=== PATIENT | female | born 1940 | race Native Hawaiian/Other Pacific Islander ===

== ENCOUNTER 2016-12-31 06:47 | Day surgery (SDC) | payer MEDICARE ==
[~2016-12-31 06:47] MED LIST: ACETAMINOPHEN 1,000 MG/100 ML BTL IV ONE; CEFAZOLIN 2 Gram 2 GM/50 ML BAG IVPB ONE; FAMOTIDINE 20MG TABLET PO ONE; MECLIZINE 25 MG TABLET PO ONE; METOCLOPRAMIDE 10 MG TABLET PO ONE
--- NOTE | 2016-12-31 06:48 | History and Physical - [facility] ---
CHIEF COMPLAINT/HISTORY OF CHIEF COMPLAINT: This patient with a history of a post laminectomy radiculitis has a spinal opioid infusion system in place which currently is nonfunctional. Due to the number of different kinds of issues this system was slowly titrated down in the opioid until at this time it is a keep open rate. By her request she is here for removal. There appear to have been a number of different side effects throughout the infusion therapy. PAST MEDICAL HISTORY: Chronic obstructive pulmonary disease, coronary artery disease, peripheral vascular disease, cardiac arrhythmia, gastritis, and degenerative arthritis. PAST SURGICAL HISTORY: surgery, foot surgery, shoulder surgery, spinal surgery and pump implant. MEDICATIONS ON ADMISSION: List to be provided. ALLERGIES: TAPE AND ANTIINFLAMMATORIES. FAMILY/PSYCHOSOCIAL HISTORY: Social history - Caffeine. Family history - Hypothyroidism, asthma, coronary artery disease and cancer. SYSTEMS REVIEW: The patient is appropriate in no acute distress. The remainder of the systems review is positive for blood pressure problems, peripheral edema, chronic bronchitis, and gastritis. PHYSICAL EXAMINATION: Height is 5'0", weight is 170. No vital signs. HEENT: Within normal limits. LUNGS: Clear. HEART: Regular rate and rhythm. ABDOMEN: Nontender. MUSCULOSKELETAL: Examination of the musculoskeletal system shows the incisions for the pump, battery in the posterior gluteal margin, and the midline incision for the catheter placement. Chronic pain pattern appears to be low back with a bilateral leg extension. IMPRESSION: 1. POST LUMBAR LAMINECTOMY SYNDROME, ICD10 CODE M96.1. 2. LUMBAR RADICULITIS, ICD10 CODE M54.16 AND M54.17. 3. SPINAL OPIOID INFUSION SYSTEM NONFUNCTIONAL. PLAN: The patient is here for removal of a pump and spinal catheter on an outpatient basis. The potential risks, side effects, and complications all have been carefully reviewed and discussed. TOMMY NEVAREZ D.O. Date & Time JOB NUMBER: [id number] MTDD
[2016-12-31] MEDS ORDERED: CEFAZOLIN 1G VIAL IM ONE (14:06)
[2016-12-31] MEDS ORDERED: LIDOCAINE 1% W/EPI 1:200,000 MPF 30ML SQ ONE (14:06)
[2016-12-31] MEDS ORDERED: BUPIVACAINE 0.5% W/EPI MPF 30 ML VIAL IVP ONE (14:06)
[2016-12-31] MEDS ORDERED: HYDROCODONE/APAP 7.5/325MG TABLET PO ONE (14:07)
[2016-12-31] MEDS ORDERED: FENTANYL PF 100MCG/2ML VIAL IV ONE (15:11)
[2016-12-31] MEDS ORDERED: MIDAZOLAM HCL 2MG/2ML VIAL IV ONE (15:11)
[2016-12-31] MEDS ORDERED: LIDOCAINE 2% MDV (20MG/ML) 20ML VIAL IV ONE (15:11)
[2016-12-31] MEDS ORDERED: HYDROMORPHONE HCL 2 MG/ML VIAL IV ONE (15:11)
[2016-12-31] MEDS ORDERED: PROPOFOL 10 MG/ML VIAL IV ONE (15:11)
--- NOTE | 2017-01-05 16:06 | Operative Note - [facility] ---
DATE OF SURGERY: 12/31/16 PREOPERATIVE DIAGNOSES: 1. POST LUMBAR LAMINECTOMY SYNDROME, ICD-10 CODE = M96.1. 2. LUMBAR RADICULITIS, ICD-10 CODE = M54.16 and M54.17. 3. SPINAL OPIOID INFUSION SYSTEM NONFUNCTIONAL. OPERATION: 1. INCISION, SUBCUTANEOUS DISSECTION, AND REMOVAL OF INDWELLING SPINAL CATHETER. 2. INCISION, SUBCUTANEOUS DISSECTION, AND REMOVAL OF INDWELLING PROGRAMMABLE PUMP. SURGEON: TOMMY NEVAREZ D.O. ANESTHESIA: LOCAL SEDATION. ANESTHESIA PROVIDER: SHENA DRIVER CRNA. INDICATION: This patient presents with a history of intractable lumbar radiculitis managed with the spinal infusion device. Over years, this patient started to develop side-effects somewhat atypical but required reduction of the infusion. Eventually, the infusion was turned off. She is here for removal of a nonfunctional device. PROCEDURE: Intravenous line, vital sign monitoring, IV sedation by Anesthesia. Patient position prone. Sterile prep, sterile technique. The posterior gluteal pump pouch left posterior incision infiltrated. Midline incision approximating L3 was infiltrated and incision made. Subcutaneous dissection was conducted to the implanted catheter and the anchor. The anchor and the suture were removed intact. A pursestring suture was placed around the catheter. As the catheter was retracted out of the space, the pursestring suture was tightened stopping CSF leak. The pump pouch incision was then made and subcutaneous dissection was conducted to the pump. No Dacron sleeve noted. The pump and its retaining suture were removed intact. Antibiotic irrigation and Bovie for hemostasis of both sites. Vicryl for fascia, running subcuticular Vicryl for skin, and a Dermabond closure system was then used to approximate the edges of the wound after the closure. She was transported to the Recovery Room stable showing no side-effects from the procedure or the sedation. When fully awake and alert, she was prepared for discharge. DISCHARGE INSTRUCTIONS: 1. The sites will remain clean and dry. No showering or bathing in any way that would disrupt dressings, if it happens, contact the clinic. 2. The office will contact the patient to evaluate the incisions in 5-7 days. Until then, her activities should stay low. 3. She can resume her standard medications, including the antibiotic Levaquin 500 mg once a day for 14 days. All other instructions provided, numbers to contact, problems given. She was then discharged. cc: Primary Physician JOB NUMBER: [id number] MTDD
== END 2016-12-31 10:20 | disposition home or self-care (01) ==
LOC: SUR 06:47
PROVIDERS: ATTEND Pain Medicine Interventional Pain Medicine
DX: T85.890A Other specified complication of nervous system prosthetic devices, implants and grafts, initial encounter (principal); J44.9 Chronic obstructive pulmonary disease, unspecified; I73.9 Peripheral vascular disease, unspecified
CPT/HCPCS: 62365; 62355; 00300; J3010; J1170; J0690

== ENCOUNTER 2017-08-26 06:43 | Day surgery (SDC) | payer MEDICARE ==
[~2017-08-26 06:43] MED LIST changes: -MECLIZINE 25 MG TABLET PO ONE; -METOCLOPRAMIDE 10 MG TABLET PO ONE
[2017-08-26] MEDS ORDERED: LIDOCAINE 2% MDV (20MG/ML) 20ML VIAL IV ONE (06:44)
[2017-08-26] MEDS ORDERED: FENTANYL PF 100MCG/2ML VIAL IV ONE ×2 (06:44)
[2017-08-26] MEDS ORDERED: MIDAZOLAM HCL 2MG/2ML VIAL IV ONE (06:44)
[2017-08-26] MEDS ORDERED: LIDOCAINE 1% W/EPI 1:200,000 MPF 30ML SQ ONE (06:44)
[2017-08-26] MEDS ORDERED: BUPIVACAINE 0.75% W/EPI MPF 30ML VIAL IVP ONE (06:44)
[2017-08-26] MEDS ORDERED: PROPOFOL 10 MG/ML VIAL IV ONE (06:44)
[2017-08-26] MEDS ORDERED: CEFAZOLIN 1G VIAL IM ONE (06:44)
--- NOTE | 2017-08-26 06:48 | History and Physical - [facility] ---
CHIEF COMPLAINT/HISTORY OF CHIEF COMPLAINT: This patient presents with a post laminectomy radiculitis. The history is chronic, the pain is intractable and has not responded to conservative therapies. A spinal opioid infusion device had to be removed because of side effects. A spine cord stimulator trial on 11/18 resulted in 75-80% pain control. Due to the failure of all other therapies, she is here for implantation of a permanent system. PAST MEDICAL HISTORY: Coronary artery disease, chronic obstructive pulmonary disease, peripheral vascular disease, cardiac arrhythmia, gastritis, and degenerative arthritis. PAST SURGICAL HISTORY: section, foot surgery, shoulder surgery, spinal surgery, pump implant and removal. MEDICATIONS ON ADMISSION: List to be provided. ALLERGIES: ADHESIVES AND ANTIINFLAMMATORIES. FAMILY/PSYCHOSOCIAL HISTORY: Positive for caffeine, hypothyroidism, coronary artery disease and cancer. SYSTEMS REVIEW: The patient is appropriate in no acute distress. The remainder of the systems review is positive for peripheral edema, bronchitis and gastritis. PHYSICAL EXAMINATION: Height is 5'0", weight is 160. No vital sounds. HEENT: Within normal limits. LUNGS: Clear. HEART: Regular rate and rhythm. ABDOMEN: Nontender. MUSCULOSKELETAL: Examination of the musculoskeletal system shows diffuse tenderness throughout the lumbar spine. Range of motion produces pain throughout the low back into both lower extremities. Motor and sensory field evaluation is somewhat difficult to determine, there doesn't appear to be any focal sensory deficits and only generalized motor weakness. NEUROLOGIC: Cranial nerves are intact. IMPRESSION: 1. POST LUMBAR LAMINECTOMY SYNDROME, ICD-10 CODE M96.1. 2. LUMBAR RADICULITIS, ICD-10 CODE M54.16 AND M54.17. PLAN: The patient is here for implantation of a permanent spinal cord stimulator. The potential risks, side effects, and complications have all been carefully reviewed and discussed including nerve root injury, spinal cord injury , dural puncture, spinal headache and failure of the therapy. The procedure will be considered outpatient. An overnight stay will be evaluated. JOB NUMBER: [id number] MTDD
[2017-08-26] MEDS ORDERED: AL HYDROX/MAG HYDROX 30ML UD PO PRN (09:59)
[2017-08-26] MEDS ORDERED: METOCLOPRAMIDE 10 MG TABLET PO PRN (09:59)
[2017-08-26] MEDS ORDERED: OXYCODONE/APAP 10MG-325MG TABLET PO PRN (09:59)
[2017-08-26] MEDS ORDERED: HYDROMORPHONE HCL 1 MG/ML SYRINGE IM PRN (09:59)
[2017-08-26] MEDS ORDERED: ACETAMINOPHEN 325 MG TAB PO PRN ×2 (09:59)
[2017-08-26] MEDS ORDERED: METOCLOPRAMIDE HCL 10 MG/2 ML VIAL IVP PRN (09:59)
[2017-08-26] MEDS ORDERED: SENNOSIDES/DOCUSATE SODIUM UD CAPSULE PO PRN ×2 (09:59)
[2017-08-26] MEDS ORDERED: HYDROMORPHONE HCL 2 MG/ML VIAL IM PRN (09:59)
[2017-08-26] MEDS ORDERED: DIPHENHYDRAMINE HCL IV 50 MG/ML VIAL IVP PRN ×2 (09:59)
[2017-08-26] MEDS ORDERED: DIPHENHYDRAMINE HCL 25 MG CAPSULE PO PRN ×2 (09:59)
[2017-08-26] MEDS ORDERED: HYDROCODONE/APAP 7.5/325MG TABLET PO PRN ×2 (09:59)
[2017-08-26] MEDS ORDERED: TEMAZEPAM 15 MG CAPSULE PO PRN ×2 (09:59)
[2017-08-26] MEDS ORDERED: ONDANSETRON 4 MG PO PRN (10:26)
[2017-08-26] MEDS: OXYCODONE/APAP 10MG-325MG TABLET PO PRN ×4 (10:40→22:21)
[2017-08-26] MEDS: 0.9 % SODIUM CHLORIDE 10ML SYR IVP SCH ×2 (11:20→22:27)
[2017-08-26] MEDS: PATIENT OWN MED: OMEPRAZOLE 40 MG PO SCH (12:24)
[2017-08-26] MEDS: CLONIDINE 0.1 MG PO SCH ×2 (14:43→22:26)
[2017-08-26] MEDS: CEFAZOLIN 2 Gram 2 GM/50 ML BAG IVPB SCH ×2 (14:44→23:58)
--- NOTE | 2017-08-26 14:44 | Operative Note - [facility] ---
DATE OF SURGERY: 08/26/17 PREOPERATIVE DIAGNOSES: 1. POST LUMBAR LAMINECTOMY SYNDROME, ICD-10 CODE = M96.1. 2. LUMBAR RADICULITIS, ICD-10 CODE = M54.16 AND M54.17. OPERATION: 1. FLUOROSCOPICALLY-GUIDED EPIDURAL ACCESS LEFT T12-L1 PLACEMENT OF SPINAL CORD STIMULATOR LEAD 1, A [employer] MRI COMPATIBLE OCTAPOLAR LEAD 8 ELECTRODES INSERTED LEFT T6. 2. FLUOROSCOPICALLY-GUIDED EPIDURAL ACCESS LEFT T11-12, PLACEMENT OF SPINAL CORD STIMULATOR LEAD 2, A [employer] MRI COMPATIBLE OCTAPOLAR 8 ELECTRODES INSERTED RIGHT AT T6. 3. COMPLEX PROGRAMMING LEAD 1 OVER 20 MINUTES FOLLOWED BY COMPLEX PROGRAMMING OF LEAD 2 OVER 20 MINUTES. 4. INCISION, SUBCUTANEOUS DISSECTION, AND ANCHORING OF LEAD 1 AND LEAD 2 TO SUPRASPINOUS FASCIA USING A [employer] LOCKING ANCHOR. 5. INCISION, SUBCUTANEOUS DISSECTION, AND CREATION OF SUBCUTANEOUS POUCH AT LEFT POSTERIOR GLUTEAL MARGIN FOR PLACEMENT OF GENERATOR IDENTIFIED [employer] PROGRAMMABLE RECHARGEABLE MRI COMPATIBLE. 6. TUNNELING BETWEEN POUCHES, PLACEMENT OF EXTERNAL PORTION OF LEAD 1 AND LEAD 2 INTO GENERATOR POUCH, EACH LEAD INTERFACED TO GENERATOR. 7. CLOSURE OF INCISIONS, VICRYL FOR FASCIA, RUNNING SUBCUTICULAR VICRYL FOR SKIN. DERMABOND CLOSURE. 8. COMPLEX PROGRAMMING RECOVERY ROOM INTERNAL GENERATOR HOME USE TWO STIMULATORS , 20 MINUTES. SURGEON: TOMMY NEVAREZ D.O. ANESTHESIA: LOCAL SEDATION. ANESTHESIA PROVIDER: TALON KEEN CRNA. INDICATION: This patient presents with a history of intractable post lumbar laminectomy radiculitis. Due to the failure of all therapies, a spinal cord stimulator trial was conducted with 75 to 85% pain control. Due to the failure of all therapies, a spinal cord stimulator trial was conducted, office-based, with 75 to 80% pain control. Due to the failure of all therapies and the success of the trial, the patient presents today for implantation of a permanent system. PROCEDURE: Intravenous line, vital sign monitoring, IV sedation, prepped and draped sterile technique. Under imaging, from the left, the epidural interspace [id number] and 12-1 were both identified and marked, infiltrated, then two separate curved access Epimed needles with [id number] into the space. At 12-1, spinal cord stimulator lead 1, a [employer] MRI Octapolar with 8 electrodes was inserted left of midline T6. With the epidural access at T11-12 , spinal cord stimulator lead 2, a [employer] MRI compatible Octapolar with 8 electrodes was inserted right of the midline at T6. Complex programming of lead 1 over 20 minutes followed by complex programming of lead 2 over 20 minutes ultimately resulting in patterns of stimulation across the back and into the legs; patient indicating we were in all of the areas of the pain. She was given the option to implant, continue to program, or remove; she opted to implant. Questions were repeated with the same response. At that point, the skin above and below 12-1 and 11-12 were infiltrated with local, incision made, and subcutaneous dissection was conducted to the supraspinous fascia. The needles were removed then each lead was anchored to the supraspinous fascia with a [employer] [place] secured with a nonabsorbable suture. At the left posterior gluteal margin, a site picked by the patient for the generator, skin infiltrated, incision made and subcutaneous dissection was conducted to form a pouch of suitable depth and size for the generator identified as a [employer] Programmable Rechargeable MRI compatible. A tunneling tool was then used to carry the leads into the generator pouch and each lead was interfaced to the generator. Antibiotic irrigation. Bovie for hemostasis. The generator was placed into the pouch and secured to the fascia with nonabsorbable suture. The leads were placed in their own pouch and then both incisions were closed Vicryl for fascia and a running subcuticular Vicryl for skin. A Dermabond closure was then used to approximate the edges of each wound. She was transported to the Recovery Room stable showing no side-effects from the procedure or the sedation. When fully awake and alert, complex programming of the generator performed over 20 minutes re-establishing stimulation and pain control to all of the appropriate areas. She instructed on the use of the system, provided information and error messaging, and then prepared for discharge. DISCHARGE INSTRUCTIONS: 1. Site to remain clean and dry. No showering or bathing although the Dermabond will allow showering. No sitting in water. 2. Standard medications resumed including Levaquin, the antibiotic, 500 mg once a day for 14 days. 3. The office will contact the patient in the next 24-48 hours to set up an appointment in 7-10 days to evaluate the incisional sites. Until then, her activities should stay low; limit bend, lift, push, pull. If she drives, she needs to drive with the system off. All other instructions provided, numbers to contact, problems given. She will be discharged in the morning. cc: Dr. Doyle JOB NUMBER: [id number] MTDD
[2017-08-26] MEDS ORDERED: PATIENT OWN MED: CLONAZEPAM 0.5 MG PO SCH (22:00)
[2017-08-26] MEDS: PATIENT OWN MED: FLUTICASONE NASAL SPRAY INH SCH ×2 (22:26→22:33)
[2017-08-27] MEDS: OXYCODONE/APAP 10MG-325MG TABLET PO PRN ×3 (02:35→11:48)
[2017-08-27] MEDS: CEFAZOLIN 2 Gram 2 GM/50 ML BAG IVPB SCH (06:55)
[2017-08-27] MEDS: PATIENT OWN MED: OMEPRAZOLE 40 MG PO SCH (06:55)
--- NOTE | 2017-08-27 07:48 | RADIOLOGY REPORT ---
EXAM: AP THORACOLUMBAR SPINE HISTORY: POST PAIN STIMULATOR IMPLANT. TECHNIQUE: A single AP view of the thoracolumbar spine was obtained. Comparison: AP thoracolumbar spine 04/12/14. FINDINGS: There is a new battery pack in the left lower quadrant presumably representing a pain pump stimulator device, with now two electrode leads extending up into the thoracic levels up to the level of the superior end plate of the body of T6. Surgical clips right upper quadrant of the abdomen as before. Degenerative change in the spine. IMPRESSION: 1. PAIN STIMULATOR DEVICE IN PLACE DESCRIBED ABOVE WITH THE ELECTRODES EXTENDING UP TO THE LEVEL OF THE SUPERIOR END PLATE OF THE BODY OF T6. 2. DEGENERATIVE CHANGES IN THE SPINE. JOB NUMBER: [id number] MTDD
[2017-08-27] MEDS ORDERED: PATIENT OWN MED: LISINOPRIL 10 MG PO SCH (10:00)
[2017-08-27] MEDS ORDERED: PATIENT OWN MED: CLONIDINE 0.2 MG PO SCH (10:00)
[2017-08-27] MEDS ORDERED: BUMETANIDE 0.5 MG PO SCH (10:00)
[2017-08-27] MEDS: 0.9 % SODIUM CHLORIDE 10ML SYR IVP SCH (10:29)
== END 2017-08-27 12:45 | disposition home or self-care (01) ==
LOC: SUR 06:43 → MEDSURG 10:03 → SUR 08-27 12:45
PROVIDERS: ATTEND Pain Medicine Interventional Pain Medicine
DX: M96.1 Postlaminectomy syndrome, not elsewhere classified (principal); M54.16 Radiculopathy, lumbar region; M54.17 Radiculopathy, lumbosacral region; I10 Essential (primary) hypertension
CPT/HCPCS: 95972; 72020; 63685; 63650 ×2; 01936; J3010; J0690 ×2; J3490

== ENCOUNTER → 2017-12-02 | Day surgery (SDC) | payer MEDICARE ==
[~2017-12-02] MED LIST changes: -ACETAMINOPHEN 1,000 MG/100 ML BTL IV ONE; +BUPIVACAINE 0.5% W/EPI MPF 30 ML VIAL IVP ONE; -CEFAZOLIN 2 Gram 2 GM/50 ML BAG IVPB ONE; +DEXAMETHASONE PRESERVATIVE FREE 10MG/ML VIAL IV ONE; -FAMOTIDINE 20MG TABLET PO ONE; +FENTANYL PF 100MCG/2ML VIAL IV ONE; +LIDOCAINE 1% W/EPI 1:200,000 MPF 30ML SQ ONE; +LIDOCAINE 2% MDV (20MG/ML) 20ML VIAL IV ONE; +MIDAZOLAM HCL 2MG/2ML VIAL IV ONE; +PROPOFOL 10 MG/ML VIAL IV ONE
--- NOTE | 2017-12-02 20:15 | Operative Note - [facility] ---
DATE OF SURGERY: 12/02/17. PREOPERATIVE DIAGNOSIS: CERVICAL SPONDYLOSIS WITHOUT MYELOPATHY, ICD-10 CODE = M47.812. SURGERY: RADIOFREQUENCY RHIZOTOMY BILATERAL CERVICAL FACETS 4-5 AND 5-6. SURGEON: TOMMY NEVAREZ D.O. ANESTHESIA: LOCAL SEDATION. ANESTHESIA PROVIDER: SHENA DRIVER CRNA INDICATION: This patient presents with pain, which is in his neck. Examination shows diffuse tenderness in the cervical spine. Range of motion causes pain to the neck with extension. Diagnostics show extensive multiple levels of spondylosis. A facet series with 75-85% pain control. Due to the failure of therapy and the success of the facet series, the patient presents for rhizotomy for more long-term relief. PROCEDURE: Intravenous line, vital sign monitoring, IV sedation, prepped, draped, sterile technique. Under imaging, the cervical facets at 4-5 and 5-6 were identified and marked bilaterally. Skin infiltrated. A #22 gauge rhizotomy cannula positioned. Stimulation trials conducted. Rhizotomy burn performed. Local with anti-inflammatory into the sites. Topical antibiotics, sterile dressing was applied. Will monitor and evaluate. cc: Dr. Abby Doyle JOB NUMBER: [id number] MTDD
== END | disposition home or self-care (01) ==
LOC: SUR 06:47
PROVIDERS: ATTEND Pain Medicine Interventional Pain Medicine
DX: M47.812 Spondylosis without myelopathy or radiculopathy, cervical region (principal); I10 Essential (primary) hypertension; K58.9 Irritable bowel syndrome, unspecified
CPT/HCPCS: 64633; 64634; 01936; J1100; J3010

== ENCOUNTER 2018-01-13 07:02 | Day surgery (SDC) | payer MEDICARE ==
--- NOTE | 2018-01-13 06:31 | History and Physical Report ---
DATE: 01/12/2018. CHIEF COMPLAINT AND HISTORY OF CHIEF COMPLAINT: This is a patient with a history of a postlaminectomy radiculopathy. She had a spinal cord stimulator implant on 08/26/2017. Although this initially appeared to be working quite well, over time she became frustrated with the demands of the system and stopped using it. We evaluated it and recommended that it be removed. She is here for removal of the system. PAST MEDICAL HISTORY: Coronary artery disease, chronic obstructive pulmonary disease, peripheral vascular disease, cardiac arrhythmia, gastritis, degenerative arthritis. PAST SURGICAL HISTORY: Podiatric surgery, shoulder surgery, spinal surgery, pump implant, stimulator implant. MEDICATIONS ON ADMISSION: To be provided. ALLERGIES: Adhesive and anti-inflammatories. SOCIAL HISTORY: Caffeine. FAMILY HISTORY: Hypothyroidism, coronary artery disease, cancer. REVIEW OF SYSTEMS: The patient is appropriate and in no acute distress. The remainder of the systems review shows peripheral edema, bronchitis, gastritis. PHYSICAL EXAMINATION: General: Height and weight are unknown. Vital Signs: Unavailable. HEENT: Within normal limits. Lungs: Clear. Heart: Regular rate and rhythm. Abdomen: Nontender. Musculoskeletal: Examination of the musculoskeletal system shows the midline incision for the leads approximating T12. There is a generator incision at the left posterior gluteal margin. All incisions are intact. Primary pain pattern is in the lower extremities, postlaminectomy. Motor and sensory field functionality is difficult to assess. Ambulation: Assistive device utilized. Neurologic: Cranial nerves are intact. IMPRESSION: 1. POSTLUMBAR LAMINECTOMY SYNDROME, ICD-10 CODE M96.1. 2. RADICULOPATHY, ICD-10 CODE M54.16 AND M54.17. 3. SPINAL CORD STIMULATOR INTERNAL GENERATOR NONFUNCTIONAL. PLAN: The patient is here on an outpatient basis for removal of two leads and internal generator. The procedure will be considered outpatient. The risks, side effects, and complications have been reviewed and discussed. JOB NUMBER: [id number] cc: Ranjith Suarez
[~2018-01-13 07:02] MED LIST changes: +ACETAMINOPHEN 1,000 MG/100 ML BTL IV ONE; -BUPIVACAINE 0.5% W/EPI MPF 30 ML VIAL IVP ONE; +CEFAZOLIN 2 Gram 2 GM/50 ML BAG IVPB ONE; -DEXAMETHASONE PRESERVATIVE FREE 10MG/ML VIAL IV ONE; +FAMOTIDINE 20MG TABLET PO ONE; -FENTANYL PF 100MCG/2ML VIAL IV ONE; -LIDOCAINE 1% W/EPI 1:200,000 MPF 30ML SQ ONE; -LIDOCAINE 2% MDV (20MG/ML) 20ML VIAL IV ONE; +MECLIZINE 25 MG TABLET PO ONE; -MIDAZOLAM HCL 2MG/2ML VIAL IV ONE; -PROPOFOL 10 MG/ML VIAL IV ONE
[2018-01-13] MEDS ORDERED: HYDROCODONE/APAP 10/325 TABLET PO ONE (07:03)
[2018-01-13] MEDS ORDERED: LIDOCAINE 2% MDV (20MG/ML) 20ML VIAL IV ONE (07:03)
[2018-01-13] MEDS ORDERED: MIDAZOLAM HCL 2MG/2ML VIAL IV ONE (07:03)
[2018-01-13] MEDS ORDERED: BUPIVACAINE 0.5% W/EPI MPF 30 ML VIAL IVP ONE (07:03)
[2018-01-13] MEDS ORDERED: CEFAZOLIN 1G VIAL IM ONE (07:03)
[2018-01-13] MEDS ORDERED: PROPOFOL 10 MG/ML VIAL IV ONE (07:03)
[2018-01-13] MEDS ORDERED: LIDOCAINE 1% W/EPI 1:200,000 MPF 30ML SQ ONE (07:03)
[2018-01-13] MEDS ORDERED: MORPHINE SULFATE 5 MG/ML PFS IVP ONE (07:03)
[2018-01-13] MEDS ORDERED: MORPHINE SULFATE 4MG/ML PREFILLED SYRINGE IVP ONE (07:03)
--- NOTE | 2018-01-14 19:23 | Operative Note - [facility] ---
DATE OF SURGERY: 01/13/18 PREOPERATIVE DIAGNOSES: 1. POST LUMBAR LAMINECTOMY SYNDROME, ICD-10 CODE = M96.1. 2. LUMBAR RADICULOPATHY, ICD-10 CODE = M54.16 AND M54.17. SURGERY: FLUOROSCOPIC-GUIDED REMOVAL OF TWO SPINAL CORD STIMULATORS AND INTERNAL GENERATOR. SURGEON: TOMMY NVEAREZ D.O. ANESTHESIA: LOCAL SEDATION. ANESTHESIA PROVIDER: SHENA DRIVER CRNA INDICATION: This patient with a history of intractable lumbar radiculopathy. A spinal cord stimulator implant was performed, MRI compatible leads. Over the last number of months, the system has become somewhat troublesome for the patient; patient not having success working with the system or recharging the system. After multiple attempts at assisting in the process, the patient requested the system be removed. SURGERY: Intravenous line, vital sign monitoring, IV sedation, prepped and draped with sterile technique. Under imaging, two spinal cord stimulators implanted were identified with the incisional site at T12-L1. Skin infiltrated, incision made and subcutaneous dissection was conducted to the anchors and the suture, which were all removed intact. The leads and all electrodes accounted for removed intact. At the left posterior gluteal margin, skin infiltrated, incision made and subcutaneous dissection was conducted to the generator. The generator was removed along with its suture. Imaging was performed to ensure that all components were removed. Antibiotic irrigation and Bovie for hemostasis. Both incisions were closed with Vicryl for fascia and a running subcuticular Vicryl for skin, Dermabond closure. She was transported to the Recovery Room stable with no side-effects from the procedure or the sedation. When stable, she was prepared for discharge. DISCHARGE INSTRUCTIONS: 1. The sites are to remain clean and dry. No showering or bathing in any way that would disrupt dressings. If it happens, contact the clinic. She can shower with the Dermabond but not sit in water. 2. Standard medications resumed including the antibiotic, Levaquin 500 mg once a day for 14 days. 3. Office will contact the patient in the next 24 to 48 hours to be evaluated for the sites. Until then, she should keep her activities. All other instructions provided, numbers to contact if problems given. JOB NUMBER: [id number] MTDD
== END 2018-01-13 11:15 | disposition home or self-care (01) ==
LOC: SUR 07:02
PROVIDERS: ATTEND Pain Medicine Interventional Pain Medicine
DX: M96.1 Postlaminectomy syndrome, not elsewhere classified (principal); M54.16 Radiculopathy, lumbar region; M54.17 Radiculopathy, lumbosacral region; I10 Essential (primary) hypertension; K58.9 Irritable bowel syndrome, unspecified
CPT/HCPCS: 85002; J0690; J2274